=== PATIENT | female | born 1970 | race Caucasian/White ===

== ENCOUNTER → 2017-02-17 | Outpatient (CLI) | payer OTHER | LOC: FIMAGING 12:01 | DX: Z12.31 Encounter for screening mammogram for malignant neoplasm of breast (principal) | CPT/HCPCS: G0202 ==

== ENCOUNTER 2018-03-21 13:03 | Observation (INO) | payer OTHER ==
[2018-03-21] MEDS ORDERED: ASPIRIN 81 MG CHEWABLE TAB PO ONE (13:08)
--- NOTE | 2018-03-21 13:19 | CPEKG ---
Heart Rate: 55 RR Interval: 1091 P-R Interval: 128 QRSD Interval: 106 QT Interval: 452 QTC Interval: 433 P [place]: 61 QRS [place]: 56 T Wave [place]: 15 EKG Severity - NORMAL ECG - EKG Impression: SINUS RHYTHM Electronically Signed By: Rodney Luna 21-Mar-2018 14:48:00
[2018-03-21 13:31] LABS: PLATELET COUNT 192 10^3/uL (150-400)
[2018-03-21 13:40] LABS: INR 1.06 (0.83-1.16)
[2018-03-21 13:43] LABS: CREATINE KINASE 67 IU/L (0-156)
--- NOTE | 2018-03-21 13:56 | EDPHY ---
H & P Time Seen by Provider: 03/21/18 13:46 HPI/ROS: HPI Chest discomfort. 48-year-old female by private vehicle with . This patient reports that she woke up at 7:30 a.m. This morning and shortly after this she noticed left- sided upper lateral chest pain that radiates down the medial aspect of her left arm. She describes it as sometimes dull and aching and sometimes sharp and shooting. She has no previous history of coronary artery disease. No significant family history. She does not smoke. Denies diabetes, hypertension , hyperlipidemia. No methamphetamine, cocaine or other street drugs. She denies any neck pain or neck injury. No loss of sensation or weakness in her left upper extremity. Denies any associated shortness of breath. Reports that it comes on intermittently and randomly. No association with physical activity. She reports feeling unusually fatigued through the weekend. She has had a mild intermittent gradual onset headache which she describes as frontal. Denies headache and chest pain at this time. ROS: Constitutional: No fever, no chills. As above. Eyes: No discharge. No changes in vision. ENT: No sore throat. No nasal congestion or rhinorrhea. Respiratory: No cough. No shortness of breath. Cardiac: As above, no palpitations. Gastrointestinal: No abdominal pain, no vomiting, no diarrhea. Genitourinary: No hematuria. No dysuria or increased frequency with urination. Musculoskeletal: No back pain. No neck pain. No myalgias or arthralgias. Skin: No rashes. Neurological: As above. No focal weakness or altered sensation. Past medical history: IUD. Yeast infection. Social history: Nonsmoker. Here with her . No alcohol. As above. Physical Exam: General Appearance: Alert, no distress. This patient is responding to questions appropriately and in full sentences. This patient appears well- hydrated and well-nourished. Eyes: Pupils equal and round no pallor or injection. No lid edema, erythema or injection. Respiratory: There are no retractions, lungs are clear to auscultation with good air movement bilaterally. Cardiovascular: Regular rate and rhythm. No murmur. Gastrointestinal: Abdomen is soft and nontender, no masses, bowel sounds normal. No focal tenderness at McBurney's point. No Barker sign. Neurological: Motor sensory function is grossly intact. Cranial nerves are normal. Gait is normal. Skin: Warm and dry, no rashes. Musculoskeletal: Neck is supple and nontender. No pain on flexion of the neck. Extremities are symmetrical. All joints range without pain or impingement. Psychiatric: No agitation. No depression. Database: EKG: EKG time is 1:18 p.m.; EKG shows a narrow complex normal sinus rhythm with a ventricular rate of 55. The OR, QRS, QT intervals are within normal limits. There are no ST-T wave changes indicative of ischemic or injury pattern. No evidence of right heart strain. Interpreted by me. Imaging: Chest x-ray AP portable; the cardiac mediastinal silhouette is unremarkable. No evidence of infiltrate or pneumothorax. No acute cardiopulmonary disease process noted. Interpreted by me. Procedures: Emergency department course: IV placed. She was placed on a monitor. She was given 324 mg of chewed aspirin. Vital signs reviewed and are unremarkable. EKG obtained and reviewed by myself. No chest pain currently. 3:00 p.m., patient re-evaluated. Resting comfortably at this time. She denies any chest pain currently. Results of emergency department workup discussed with her and her . I recommended admission for further evaluation and management with her hospitalist service. They endorse this plan. All of their questions were answered. 3:15 p.m., spoke with hospitalist Dr. Nugent. Case discussed in detail with him. He accepts the patient for admission to telemetry observation. The patient was admitted in stable condition. Differential Diagnosis: The differential diagnosis on this patient includes but is not limited to musculoskeletal etiology of chest pain, acute coronary syndrome. Pulmonary embolism, myocardial infarction, myocarditis, pericarditis, aortic dissection, brachial plexus injury, cervical radiculopathy unlikely. This represents a partial list of diagnoses considered. These considerations are based on history , physical exam, past history, reassessment and diagnostic testing. Smoking Status: Never smoked Constitutional: Initial Vital Signs Temperature (C) 36.6 C 03/21/18 13:05 Heart Rate 65 03/21/18 13:05 Respiratory Rate 16 03/21/18 13:05 Blood Pressure 124/78 H 03/21/18 13:05 O2 Sat (%) 97 03/21/18 13:05 O2 Delivery Mode Room Air Allergies/Adverse Reactions: nitrofurantoin [From Macrobid] Allergy (Verified 03/21/18 15:25) Other-Enter Comments Penicillins Allergy (Verified 03/21/18 15:25) Rash Sulfa (Sulfonamide Antibiotics) Allergy (Verified 03/21/18 15:25) Rash Home Medications: Medication Instructions Recorded Calcium Carb W/Vit D [Calcium Carb 4 each PO DAILY 03/21/18 W/Vit D 500/200 (*)] Fluconazole [Diflucan (*)] 150 mg PO Q3D 03/21/18 Medical Decision Making - Diagnostics Imaging Results: Imaging Impressions Chest X-Ray 03/21/18 13:09 Impression: Chest negative for acute abnormality. - Data Points Laboratory Results: Laboratory Results 03/21/18 13:24 03/21/18 13:24 03/21/18 03/21/18 03/21/18 13:24 13:24 13:24 WBC 5.96 10^3/uL 10^3/uL (3.80-9.50) RBC 5.73 10^6/uL H 10^6/uL (4.18-5.33) Hgb 16.5 g/dL H g/dL (12.6-16.3) Hct 48.5 % H % (38.0-47.0) MCV 84.6 fL fL (81.5-99.8) MCH 28.8 pg pg (27.9-34.1) MCHC 34.0 g/dL g/dL (32.4-36.7) RDW 12.0 % % (11.5-15.2) Plt Count 192 10^3/uL 10^3/uL (150-400) MPV 10.2 fL fL (8.7-11.7) Neut % (Auto) 61.7 % % (39.3-74.2) Lymph % (Auto) 28.7 % % (15.0-45.0) Aiken % (Auto) 6.4 % % (4.5-13.0) Eos % (Auto) 2.2 % % (0.6-7.6) Baso % (Auto) 0.7 % % (0.3-1.7) Nucleat RBC Rel Count 0.0 % % (0.0-0.2) Absolute Neuts (auto) 3.68 10^3/uL 10^3/uL (1.70-6.50) Absolute Lymphs (auto) 1.71 10^3/uL 10^3/uL (1.00-3.00) Absolute Monos (auto) 0.38 10^3/uL 10^3/uL (0.30-0.80) Absolute Eos (auto) 0.13 10^3/uL 10^3/uL (0.03-0.40) Absolute Basos (auto) 0.04 10^3/uL 10^3/uL (0.02-0.10) Absolute Nucleated RBC 0.00 10^3/uL 10^3/uL (0-0.01) Immature Gran % 0.3 % % (0.0-1.1) Immature Gran # 0.02 10^3/uL 10^3/uL (0.00-0.10) PT 14.0 SEC SEC (12.0-15.0) INR 1.06 (0.83-1.16) APTT 33.5 SEC SEC (23.0-38.0) D-Dimer 0.51 ug/mLFEU H ug/mLFEU (0.00-0.50) Sodium 144 mEq/L mEq/L (135-145) Potassium 4.1 mEq/L mEq/L (3.5-5.2) Chloride 107 mEq/L mEq/L (97-110) Carbon Dioxide 24 mEq/l mEq/l (22-31) Anion Gap 13 mEq/L mEq/L (8-16) BUN 16 mg/dL mg/dL (7-23) Creatinine 1.0 mg/dL mg/dL (0.6-1.0) Estimated GFR 59 Glucose 78 mg/dL mg/dL (70-100) Calcium 8.8 mg/dL mg/dL (8.5-10.4) Creatine Kinase 67 IU/L IU/L (0-156) CK-MB (CK-2) Fraction 0.67 ng/mL ng/mL (0.00-3.19) Troponin I < 0.012 ng/mL ng/mL (0.000-0.034) Medications Given: Discontinued Medications Aspirin (Aspirin) 324 mg PO EDNOW ONE Stop: 03/21/18 13:09 Last Admin: 03/21/18 13:25 Dose: 324 mg Departure - Departure Disposition: [facility] Acute Clinical Impression: Chest pain
[2018-03-21] MEDS ORDERED: ONDANSETRON DISINTEGRATING 4 MG TAB PO PRN (14:47)
[2018-03-21] MEDS ORDERED: ACETAMINOPHEN 325 MG TAB PO PRN (14:47)
[2018-03-21] MEDS ORDERED: ONDANSETRON 4 MG/2 ML VIAL IVP PRN (14:47)
--- NOTE | 2018-03-21 15:52 | ASMTCMCOM ---
CM Note CM Note Notes: Pt presented to the Emergency Department with left arm and left anterior chest pain. History is unremarkable. Pt lives with her in [place]. 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 Pt is to be admitted for further evaluation and treatment. Discharge needs remain unclear at this time. Anticipate pt will likely discharge home independently when medically stable. CM will continue to follow. Current Discharge Plan: To be determined Date Signed: 03/21/2018 03:51 PM Electronically Signed By:Sonia Edmond RN
[2018-03-21] MEDS ORDERED: IBUPROFEN 600 MG TAB PO PRN (16:06)
--- NOTE | 2018-03-21 16:29 | GHP ---
[f rep st] HISTORY AND PHYSICAL DATE OF ADMISSION: 03/21/2018 CHIEF COMPLAINT: Left arm discomfort. HISTORY OF PRESENT ILLNESS: A 48-year-old female with no past medical history, presenting with left underarm and left upper arm pain and fatigue. She awoke this morning, states she had left upper ches t discomfort that radiated to her armpit and upper arm. It felt sharp in nature. Lasted about a min utes. This recurred several times, lasting less than a minute this morning. She just felt weak all over. Denied any associated diaphoresis, numbness or tingling in her hand. No shortness of breath. 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 She felt very exhausted this weekend with headaches, which she normally does not get. She drank more water, thinking that would help. She has had mild burnin g with urination. She took a fluconazole yesterday, thinking that might alleviate some of her sympto ms. She did feel like she had a sore throat a week ago that lasted 1 day, but that has resolved. No cough, fevers, chills, or sweats. No weight gain or weight loss. She does exercise, last being last weekend doing the elliptical for 45 minutes and weights. No chest pain or shortness of breath then. No recent travel. No lower extremity edema. REVIEW OF SYSTEMS: I completed a 10-point review of systems, negative except as noted in HPI. PAST MEDICAL HISTORY: IUD, UTIs as a child. PAST SURGICAL HISTORY: None. FAMILY HISTORY: Mother with PACs. Maternal grandmother had a three-vessel CABG. Father with hypert ension and diabetes. SOCIAL HISTORY: Lives [facility] 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 No i llicits or tobacco. Has a glass of wine a week. DIAGNOSTIC DATA: Chest x-ray is personally reviewed by me. No acute abnormalities. No effusions or opacity. EKG personally reviewed by me. Bradycardic, normal sinus rhythm, ST flattening in II, III, aVF. No olds to compare. ASSESSMENT AND PLAN: 1. Chest/arm discomfort: Differential includes acute coronary syndrome, gastroesophageal reflux dis ease, pulmonary embolus, musculoskeletal. She is currently chest pain-free. She has no personal ris k factors and story is not compelling for acute coronary syndrome. Her initial troponin and EKG are negative for ischemia. Will repeat this and monitor her on telemetry. She has had no recent travel. Her D-dimer is minimally elevated at 0.51, but her Wells score is 0. I am not inclined to check a CT at this time. 2. Fatigue: Denies any fever. She is afebrile without leukocytosis. Does complain of dysuria. We will check a UA as well as a TSH. 3. Diet: Regular. 4. Deep venous thrombosis prophylaxis: Ambulating. 5. Disposition: Patient warrants observation admission for telemetry to evaluate for arrhythmia, re peat troponin and UA. /[id number]/MODL
[2018-03-22 07:52] VITALS: BP 100/63
[2018-03-22] MEDS ORDERED: IOPAMIDOL (ISOVUE 370) 100 ML BTL IV ONE (08:36)
[2018-03-22] MEDS ORDERED: ENOXAPARIN 40 MG/0.4 ML SYR SC SCH ×2 (09:00)
[2018-03-22] MEDS ORDERED: CALCIUM CARB W/VIT D 500 MG TAB PO SCH (09:00)
--- NOTE | 2018-03-22 10:57 | ASDISCHSUM ---
Discharge Information Plan Status:Home with No Needs Medically Cleared to Leave:03/22/2018 Discharge Date:03/22/2018 CM D/C Disposition:Home, Routine, Self-Care ADT D/C Disposition:Home, Routine, Self-Care Projected Discharge Date:03/22/2018 Transportation at D/C:Family Discharge Delay Reason: Follow-Up Date:03/22/2018 Discharge Slot: Final Diagnosis: Placement Information Patient Contact Information Contact Name:SIERRA Relationship: Address: Work Phone: City: [facility] Phone: State/Node Management Code: Email: Financial Information Financial Class:HMO and PPO Plans Primary Plan Desc:[facility] P[facility] POS Primary Plan Number:[id number] Secondary Plan Desc: Secondary Plan Number: Assessment Information [facility] CM Progress Note CM Note CM Note Notes: Pt presented to the Emergency Department with left arm and left anterior chest pain. History is unremarkable. Pt lives with her in [place]. 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 Pt is to be admitted for further evaluation and treatment. Discharge needs remain unclear at this time. Anticipate pt will likely discharge home independently when medically stable. CM will continue to follow. Current Discharge Plan: To be determined Date Signed: 03/21/2018 03:51 PM Electronically Signed By:Sonia Edmond RN Case Management Discharge Plan Note Case Management Discharge Discharge Order Complete? Answers: Yes Patient to Obtain Answers: Independently Medications Transportation Arranged Answers: Family/Friends Discharge Comments Notes: 03/22/2018 Case Management Note There were no PT or OT evals during admission. There are no case management needs identified. Pt to discharge independent with follow up as directed. Date Signed: 03/22/2018 10:56 AM Electronically Signed By:Indigo Faria RN Intervention Information
--- NOTE | 2018-03-22 10:58 | ASMTLACE ---
LACE Length of stay for Answers: Less than 1 day current admission Acuity / Level of Answers: No Care: Did the patient have an inpatient admission? Comorbidities - select Answers: Other Notes: chest pain all that apply # of Emergency department Answers: 1-2 visits in the last 6 months Score: 2 Date Signed: 03/22/2018 10:57 AM Electronically Signed By:Indigo Faria RN
--- NOTE | 2018-03-22 11:33 | GDS ---
[f rep st] DISCHARGE SUMMARY CHIEF COMPLAINT: 1. Left chest pressure/left arm pain. 2. Fatigue. 3. Liver hypodensities. HISTORY OF PRESENT ILLNESS: A 48-year-old female with no significant past medical history, presentin g with a sudden onset of left upper chest and arm pain and fatigue. She woke up in the morning with chest discomfort that radiated to her armpit and upper arm. It felt sharp in nature. It lasted only minutes. This occurred several times. She just felt weak all over. Denied any associated diaphore sis, numbness or tingling in the hand. No shortness of breath. 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 She felt very exhausted over the weekend with headaches, w hich she normally does not get. No recent travel. She does exercise, last being last weekend, doing the elliptical for 45 minutes and weights without any chest pain or shortness of breath. HOSPITAL COURSE BY PROBLEM: 1. Chest/arm discomfort: Low suspicion for ACS. Normal troponins and EKGs here. No personal risk factors. D-dimer checked in the ER with subsequent CTA, which was negative for PE. She is currently pain free. 2. Fatigued, feeling better today. Checked a UA, was negative. 3. Incidental liver hypodensities: This was seen on CTA bilaterally. Recommend MRI for followup. DISPOSITION: Patient is stable for discharge home. NEW MEDICATIONS: None. FOLLOWUP: 1. Needs to establish with a PCP. 2. MRI for liver lesions. PHYSICAL EXAMINATION: VITAL SIGNS: Today, temperature 36.6, blood pressure 100/60, heart rates in t he 50s, respirations 12, 97% on room air. GENERAL: Well-appearing, appears more bright. CV : Ilya cardic, regular. No murmurs, gallops, or rubs. LUNGS: Clear. ABDOMEN: Soft, nontender, nondisten ded. Positive bowel sounds. : No [place]. MUSCULOSKELETAL: 5/5 upper and lower extremity strengt h. NEURO: 2 through 12 intact. PSYCH: Alert and oriented x3. /[id number]/MODL
[2018-03-23] MEDS ORDERED: FLUCONAZOLE 150 MG TAB PO SCH (08:00)
== END 2018-03-22 11:23 | disposition home or self-care (01) ==
LOC: F2W 16:04
PROVIDERS: ADMIT Internal Medicine; ATTEND Internal Medicine
DX: R07.9 Chest pain, unspecified (principal); M79.622 Pain in left upper arm; K76.9 Liver disease, unspecified
CPT/HCPCS: 71045; 71275; 93005; 99285; G0378; J1650; Q9967